=== PATIENT | male | born 1970 | race Caucasian/White ===

== ENCOUNTER 2020-11-22 19:04 | Emergency (ER) | payer OTHER, SELFPAY ==
[2020-11-22 19:10] VITALS: BP 139/92; PULSE 74; RESP 20; TEMP 36.8; O2SAT 97
[2020-11-22] MEDS: MORPHINE SULFATE (*CRX) 4 MG/ML INJ IM (19:27)
--- NOTE | 2020-11-22 19:37 | PC.NURSE ---
call to [facility] [place] per dr jones.
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
[2020-11-22] MEDS: BACITRACIN OINTMENT 15 GM TUBE 1 APPLIC TOPICAL (20:14)
[2020-11-22] MEDS: oxyCODONE HCL (*CRX) 10 MG TAB SR 12HR PO (20:31)
[2020-11-22 20:35] VITALS: BP 138/87; PULSE 84; RESP 20; TEMP 36.6; O2SAT 97
== END 2020-11-22 20:45 | disposition home or self-care (01) ==
PROVIDERS: Emergency Provider Family Medicine; PCP Family Medicine
DX: T21.02XA Burn of unspecified degree of abdominal wall, initial encounter (principal); X12.XXXA Contact with other hot fluids, initial encounter
CPT/HCPCS: 96372; 99283; A9270; J2270